=== PATIENT | female | born 1980 | race Caucasian/White ===

== ENCOUNTER 2018-05-05 12:19 | Inpatient (IN) | payer OTHER ==
[~2018-05-05] VITALS: Ht 160 cm; Wt 71.4 kg
[2018-05-05 15:31] LABS: BASOPHIL % 0.3 % (0-2); PLATELET COUNT 317 x10^3mcL (130-400)
[2018-05-05 15:32] LABS: RED CELL DISTRIBUTION WIDTH 17.5 % (11.5-14.5)
[2018-05-05 15:43] LABS: CALCIUM 9.6 mg/dL (8.5-10.1); CARBON DIOXIDE 25.8 mmol/L (21-32); CHLORIDE SERUM 92 mmol/L (98-107); CREATININE SERUM 0.8 mg/dL (0.6-1.0); GFR1 > 60 mL/min; GLUCOSE SERUM 365 mg/dL (74-106); POTASSIUM SERUM 3.7 mmol/L (3.5-5.1); SODIUM SERUM 131 mmol/L (136-145)
[2018-05-05 15:50] LABS: ALBUMIN 3.8 g/dL (3.4-5.0); ALKALINE PHOSPHATASE 134 U/L (46-116); ALT/SGPT 24 U/L (14-59); AMYLASE 35 U/L (25-115); AST/SGOT 15 U/L (15-37); CHOLESTEROL 330 mg/dL (<200); HDL CHOLESTEROL 69 mg/dL (40-60); LIPASE 99 IU/L (73-393); TOTAL PROTEIN, SERUM 9.2 g/dL (6.4-8.2)
[2018-05-05 16:05] LABS: microscopic required? YES; urine erythrocyte 3+ (NEGATIVE)
[2018-05-05 18:20] LABS: AMPHETAMINE QUAL UR NONE DETECTED (See below)
[2018-05-05 18:32] LABS: T3 TOTAL 0.98 ng/mL
[2018-05-05 18:43] VITALS: BP 138/86
[2018-05-05 18:48] VITALS: Ht 160 cm; Wt 71.4 kg
[2018-05-05 18:52] LABS: FREE T4 1.06 ng/dL (0.76-1.46); FREE THYROXINE INDEX 2.4 ug/dL (1.4-4.5); T4(THYROXINE) 7.6 ug/dL (4.7-13.3)
[2018-05-05 19:06] LABS: MAGNESIUM 1.8 mg/dL (1.8-2.4); PHOSPHOROUS 3.5 mg/dL (2.5-4.9)
[2018-05-05 19:09] LABS: CHOLESTEROL 333 mg/dL (<200); CHOLESTEROL/HDL RATIO 4.8; HDL CHOLESTEROL 69 mg/dL (40-60); TRIGLYCERIDES 612 mg/dL (<150)
[2018-05-05] MEDS ORDERED: LANTUS SOLOS100 U/M1 SQ (22:50)
[2018-05-05] MEDS ORDERED: METFORMIN500 M1 PO (22:51)
[2018-05-06 05:25] VITALS: BP 124/81
[2018-05-06 08:40] VITALS: BP 99/62
[2018-05-06 13:31] VITALS: BP 110/61
[2018-05-06 17:50] VITALS: BP 119/76
[2018-05-06 20:16] VITALS: BP 118/85
[2018-05-07 04:59] VITALS: BP 116/77
[2018-05-07 06:18] LABS: CALCIUM 9.1 mg/dL (8.5-10.1); CHLORIDE SERUM 101 mmol/L (98-107); CREATININE SERUM 0.7 mg/dL (0.6-1.0); GFR1 > 60 mL/min; GLUCOSE SERUM 384 mg/dL (74-106); PHOSPHOROUS 4.2 mg/dL (2.5-4.9); POTASSIUM SERUM 3.8 mmol/L (3.5-5.1); SODIUM SERUM 135 mmol/L (136-145)
[2018-05-07 06:27] LABS: BASOPHIL % 0.5 % (0-2); PLATELET COUNT 259 x10^3mcL (130-400)
[2018-05-07 06:42] LABS: RED CELL DISTRIBUTION WIDTH 17.5 % (11.5-14.5)
[2018-05-07 09:23] VITALS: BP 114/72
[2018-05-07] MEDS ORDERED: LEVAQUIN750 MG PO (10:48)
[2018-05-07 12:47] VITALS: BP 118/85
== END 2018-05-07 13:15 | disposition home or self-care (01) | DRG 463 ==
LOC: ED 12:19 → DU 17:10
PROVIDERS: Emergency Medicine; Internal Medicine
DX: N39.0 Urinary tract infection, site not specified (principal); N17.0 Acute kidney failure with tubular necrosis; E11.65 Type 2 diabetes mellitus with hyperglycemia; E87.1 Hypo-osmolality and hyponatremia; D68.59 Other primary thrombophilia; R31.9 Hematuria, unspecified; R80.9 Proteinuria, unspecified; E78.1 Pure hyperglyceridemia; E78.00 Pure hypercholesterolemia, unspecified; E78.5 Hyperlipidemia, unspecified; F17.210 Nicotine dependence, cigarettes, uncomplicated; Z79.4 Long term (current) use of insulin; Z79.84 Long term (current) use of oral hypoglycemic drugs; Z91.14 Patient's other noncompliance with medication regimen
CPT/HCPCS: 36600; 83880; 84439; 99406; J0696; J1815; J3490; J7030; Q0092

== ENCOUNTER 2018-05-26 13:39 | Inpatient (IN) | payer OTHER ==
[~2018-05-26] VITALS: Ht 160 cm; Wt 68.1 kg
[~2018-05-26 13:39] MED LIST: LANTUS SOLOS100 U/M1 SQ; LEVAQUIN750 MG PO; METFORMIN500 M1 PO
[2018-05-26 14:34] LABS: BASOPHIL % 0.3 % (0-2); BILIRUBIN TOTAL 0.4 mg/dL (0.20-1.00); CREATININE SERUM 1.1 mg/dL (0.6-1.0); PLATELET COUNT 336 x10^3mcL (130-400); TOTAL PROTEIN, SERUM 7.9 g/dL (6.4-8.2)
[2018-05-26 14:40] LABS: RED CELL DISTRIBUTION WIDTH 16.9 % (11.5-14.5)
[2018-05-26 15:31] LABS: UA SPECIFIC GRAVITY <=1.005 (1.005-1.035); microscopic required? YES; urine erythrocyte 3+ (NEGATIVE)
[2018-05-26 15:42] VITALS: BP 104/64
[2018-05-26 15:52] LABS: AMYLASE 28 U/L (25-115); CHOLESTEROL 222 mg/dL (<200); CHOLESTEROL/HDL RATIO 4.5; HDL CHOLESTEROL 49 mg/dL (40-60); LIPASE 102 IU/L (73-393); MAGNESIUM 1.9 mg/dL (1.8-2.4); PHOSPHOROUS 3.1 mg/dL (2.5-4.9); TRIGLYCERIDES 490 mg/dL (<150)
[2018-05-26 15:57] LABS: T3 TOTAL 0.69 ng/mL
[2018-05-26 16:07] LABS: AMPHETAMINE QUAL UR NONE DETECTED (See below)
[2018-05-26 16:09] LABS: T4(THYROXINE) 8.1 ug/dL (4.7-13.3)
[2018-05-26 16:31] LABS: FREE T4 0.99 ng/dL (0.76-1.46)
[2018-05-26 18:22] VITALS: BP 121/65
[2018-05-26 21:52] VITALS: BP 108/68
[2018-05-27 05:39] VITALS: BP 118/82
[2018-05-27 06:53] LABS: CALCIUM 8.2 mg/dL (8.5-10.1); CARBON DIOXIDE 26.2 mmol/L (21-32); CHLORIDE SERUM 99 mmol/L (98-107); CREATININE SERUM 0.7 mg/dL (0.6-1.0); GFR1 > 60 mL/min; GLUCOSE SERUM 149 mg/dL (74-106); MAGNESIUM 1.9 mg/dL (1.8-2.4); PHOSPHOROUS 2.8 mg/dL (2.5-4.9); POTASSIUM SERUM 3.4 mmol/L (3.5-5.1); SODIUM SERUM 131 mmol/L (136-145)
[2018-05-27 07:03] LABS: BASOPHIL % 0.3 % (0-2); PLATELET COUNT 303 x10^3mcL (130-400)
[2018-05-27 07:05] LABS: RED CELL DISTRIBUTION WIDTH 16.4 % (11.5-14.5)
[2018-05-27 09:05] VITALS: BP 107/69
[2018-05-27 13:34] VITALS: BP 110/74
[2018-05-27 17:14] VITALS: BP 116/76
[2018-05-27 20:42] LABS: CHOLESTEROL/HDL RATIO 4.7
[2018-05-27 21:01] VITALS: BP 118/80
[2018-05-28 05:32] VITALS: BP 103/69
[2018-05-28 07:24] LABS: BASOPHIL % 0.5 % (0-2); PLATELET COUNT 302 x10^3mcL (130-400)
[2018-05-28 07:33] LABS: RED CELL DISTRIBUTION WIDTH 17.6 % (11.5-14.5)
[2018-05-28 08:20] LABS: CALCIUM 8.5 mg/dL (8.5-10.1); CARBON DIOXIDE 27.8 mmol/L (21-32); CHLORIDE SERUM 101 mmol/L (98-107); CREATININE SERUM 0.7 mg/dL (0.6-1.0); GFR1 > 60 mL/min; GLUCOSE SERUM 202 mg/dL (74-106); POTASSIUM SERUM 4.1 mmol/L (3.5-5.1); SODIUM SERUM 133 mmol/L (136-145)
[2018-05-28 08:33] VITALS: BP 100/64
[2018-05-28 12:06] VITALS: BP 106/62
[2018-05-28] MEDS ORDERED: GLU500 PO (15:25)
[2018-05-28] MEDS ORDERED: LEVEMIR100 U/M1 SQ (15:30)
[2018-05-28] MEDS ORDERED: LIPI10 PO (15:31)
[2018-05-28] MEDS ORDERED: KEFLEX500 M1 PO (15:34)
[2018-05-28 16:11] VITALS: BP 106/62
[2018-05-28] MEDS ORDERED: LANTUS SOLOS100 U/M1 SQ (16:11)
[2018-05-28 16:35] VITALS: BP 114/75
== END 2018-05-28 17:02 | disposition home or self-care (01) | DRG 420 ==
LOC: ED 13:39 → MU 14:50 → DU 14:50 → MU 05-27 15:03
PROVIDERS: Emergency Medicine; Family Medicine
DX: E11.65 Type 2 diabetes mellitus with hyperglycemia (principal); N17.0 Acute kidney failure with tubular necrosis; D68.59 Other primary thrombophilia; E44.1 Mild protein-calorie malnutrition; E86.0 Dehydration; E87.1 Hypo-osmolality and hyponatremia; N39.0 Urinary tract infection, site not specified; G43.909 Migraine, unspecified, not intractable, without status migrainosus; F32.9 Major depressive disorder, single episode, unspecified; E78.5 Hyperlipidemia, unspecified; F41.9 Anxiety disorder, unspecified; F17.210 Nicotine dependence, cigarettes, uncomplicated; Z79.4 Long term (current) use of insulin; Z79.84 Long term (current) use of oral hypoglycemic drugs; Z91.14 Patient's other noncompliance with medication regimen
CPT/HCPCS: 83880; 84439; J0696; J1815; J1885; J2270; J7030; Q0092; Q0162

== ENCOUNTER 2018-11-02 01:50 | Emergency (ER) | payer MEDICAID ==
[~2018-11-02] VITALS: Ht 162.6 cm; Wt 71.2 kg
[~2018-11-02 01:50] MED LIST changes: +GLU500 PO; +KEFLEX500 M1 PO; +LEVEMIR100 U/M1 SQ; +LIPI10 PO
[2018-11-02 01:54] VITALS: Ht 162.6 cm; Wt 71.2 kg
[2018-11-02 03:34] LABS: UA SPECIFIC GRAVITY 1.025 (1.005-1.035); microscopic required? YES; urine erythrocyte TRACE (NEGATIVE)
[2018-11-02 03:48] VITALS: BP 136/97
== END 2018-11-02 03:48 | disposition home or self-care (01) ==
LOC: ED 01:50
PROVIDERS: Emergency Medicine
DX: K13.0 Diseases of lips (principal); E11.9 Type 2 diabetes mellitus without complications
CPT/HCPCS: 82962